=== PATIENT | male | born 1980 | race Caucasian/White ===

== ENCOUNTER 2018-11-28 20:29 | Emergency (ER) | payer OTHER ==
[2018-11-28] MEDS ORDERED: Lidocaine 1% 20 ML MDV ONE (21:02)
[2018-11-28] MEDS ORDERED: HYDROcodone/Acetaminophen 10/325 mg Tablet ONE (21:16)
[2018-11-28] MEDS ORDERED: Bacitracin Zinc Ointment 30 gm TUBE ONE (22:50)
[2018-11-29] MEDS ORDERED: Morphine 4 MG/ML VIAL ONE (00:12)
[2018-11-29] MEDS ORDERED: Ketorolac Tromethamine 30 MG/ML VIAL ONE (00:12)
--- NOTE | 2018-12-18 11:31 | OP ---
DATE OF PROCEDURE: 11/28/2018 PREOPERATIVE DIAGNOSES: 1. 2.5-cm upper lip laceration. 2. 3.5-cm left cheek laceration through the left labial commissure with violation of the vermilion. 3. 7.5-cm complicated laceration and soft tissue wound with degloving of the left mandible involving the left buccal mucosa and labial mucosa. 4. 2-cm lower lip laceration with violation of the vermilion in continuity with intra-oral laceration. POSTOPERATIVE DIAGNOSES: 1. 2.5-cm upper lip laceration. 2. 3.5-cm left cheek laceration with extension through the left labial oral commissure and with violation of the vermilion border. 3. Complicated 7.5-cm intra-oral laceration with degloving of the mandible involving the left buccal mucosa and labial mucosa. 4. 2-cm lower lip laceration with extension through the vermilion border in continuity with the intra-oral laceration. PROCEDURES PERFORMED: 1. Debridement and layered closure of the 2.5-cm upper lip laceration. 2. Debridement and complex layered closure of the 3.5-cm left cheek laceration. 3. Debridement and complex layered closure of 7.5-cm left buccal mucosa and labial mucosa laceration. 4. Debridement and complex layered closure of 2-cm lower lip laceration. INDICATIONS FOR PROCEDURE: This is a 38-year-old male with a medical history significant for avascular necrosis of the left hip. The patient was at his child's baseball practice this evening and fell along the bleacher secondary to his hip issues. The patient suffered significant soft tissue injuries involving the face and oral cavity. I was consulted by the Emergency Room for assistance with closure of these complex lacerations. DESCRIPTION OF PROCEDURE: Local anesthetic was delivered throughout the face and oral cavity in the area of the soft tissue wounds using combination of Septocaine and lidocaine to achieve local anesthesia. After local anesthetic was achieved, all the soft tissue wounds were debrided thoroughly of all foreign bodies and foreign material. After thorough debridement, the wounds were then irrigated copiously with normal saline. Attention was first turned towards repair of the intra-oral soft tissue wounds. Throughout the length of the 7.5-cm wound, any areas that could be closed with a deep layer were closed using buried interrupted 4-0 Vicryl sutures. The mucosal aspects of this wound were then reapproximated and closed with combination of interrupted and running 4-0 chromic gut sutures. Attention was then turned towards the extension of this intra-oral wound into an external lip wound in the midline of the lower lip. This wound was irrigated once more, and the deep layers were closed with interrupted buried 4-0 Vicryl sutures as well. The vermilion border was then tacked with 5-0 Prolene, and the remainder of the wound was then closed with interrupted 5-0 Prolene skin sutures as well. Attention was then turned to the left cheek laceration, and the wound was first re-irrigated copiously, and then the vermilion border was tacked using a 5-0 Prolene suture as well. After realignment of the vermilion border, the deep aspects of this wound were also closed using interrupted buried 4-0 Vicryl sutures. After the deep closure and the skin, the skin was then closed with interrupted 5-0 Prolene sutures. Lastly, attention was turned to the upper lip laceration, which was irrigated once more and then closed in layers as well using interrupted buried 4-0 Vicryl sutures and 5-0 interrupted Prolene sutures on the skin. It should be noted that prior to closure of these external wounds, some conservative trimming of the patient's joel in the areas of the lacerations was performed using clippers. After completion of closure of all the wounds, the oral cavity was irrigated and suctioned free of debris, and the facial aspects of the wounds were also cleaned with saline and guaze and then dressed with a heavy layer of bacitracin ointment. INTRAVENOUS FLUIDS: None. ESTIMATED BLOOD LOSS: 5 mL. DRAINS: None. SPECIMENS: None. COMPLICATIONS: None. IMPLANTS: None. FINDINGS: Significant soft tissue wounds involving both external face and the oral cavity secondary to fall from standing. DISPOSITION: The patient tolerated the procedure well. He was returned back over to the emergency room staff for completion of his care and disposition to home with his . Job ID: [id number]
--- NOTE | 2018-12-18 11:39 | CON ---
DATE OF CONSULTATION: 11/28/2018 CONSULTING PHYSICIAN: Bala Felipe MD in the emergency room. HISTORY OF PRESENT ILLNESS: This is a 38-year-old male with past medical history significant for avascular necrosis in left hip. The patient was at 1 of his children's basket ball practices in evening and fell while in the bleacher secondary to his hip issues and subsequently sustained a significant soft tissue injuries to the face and mouth. I was consulted by the emergency room due to the complex nature of the soft tissue wounds for assistance with repair. PAST MEDICAL HISTORY: Left hip avascular necrosis and gastroesophageal reflux disease. MEDICATIONS: 1. Nexium. 2. Tramadol. PAST SURGICAL HISTORY: Left femur resurfacing, labral debridement, cholecystectomy, right labral biceps repair. ALLERGIES: PENICILLIN, PHENOBARBITAL, AND DILANTIN. SOCIAL HISTORY: Denies smoking, alcohol, or drugs. REVIEW OF SYSTEMS: Positive for pain and discomfort in the anterior face and oral cavity. Also positive for significant pain in the left hip region. Otherwise, review of systems negative. PHYSICAL EXAMINATION: GENERAL: The patient is alert, awake, and oriented x3, in no apparent distress. HEAD AND NECK: No external signs of trauma involving the periorbital or orbital regions, nose, or ears. No signs of scalp trauma or soft tissue wounds. The patient has a proximally 2.5 cm upper lip laceration down to the muscle. The patient also has an approximately 3.5 cm left cheek laceration that extends from the left oral commissure with violation at the vermilion extends down to the left cheek region. The patient also has a 2 cm lower lip laceration proximally in the midline with violation at the vermilion and extension into the labial mucosa and oral cavity. On intraoral examination, the patient has a complicated significant 7.5 cm soft tissue wounds and laceration involving the left buccal mucosa, labial mucosa and extends up into the lower lip. This soft tissue intraorally extends up to the area of the attached tissues and tooth #22 region. There are no signs of dental trauma. Occlusal planes without steps. There is no noted mobility across any aspects of the mandible. Occlusion is well intercuspatated bilaterally. Floor of the mouth is soft and normal. Oropharynx is within normal limits. Neck exam is without significant findings. Trachea is midline. There are no noted masses or signs of soft tissue injury. ASSESSMENT: 1. A 2.5 cm upper lip laceration. 2. A 3.5 cm left cheek laceration extending to the left oral commissure with violation of the vermilion. 3. A 7.5 cm complicated left laceration including the buccal mucosa and labial mucosa with degloving of the mandible throughout. 4. A 2 cm lower lip laceration with violation of the vermilion and incontinuity with the intraoral lacerations. PLAN: 1. The soft tissue wounds will be cleaned and debrided and repaired in the emergency room under local anesthetic. 2. Wound care instructions have been reviewed with the patient and his . 3. Recommendations have been provided to the emergency room physician on a weeks worth of p.o. antibiotics and b.i.d. rinses with Peridex and dressing of the wounds with bacitracin ointment externally. Job ID: [id number]
== END 2018-11-29 00:19 | disposition home or self-care (01) ==
LOC: SCSER 20:29
DX: S01.511A Laceration without foreign body of lip, initial encounter (principal); W01.198A Fall on same level from slipping, tripping and stumbling with subsequent striking against other object, initial encounter
CPT/HCPCS: 12051; 40650; 41252; 96372; J1885; J2001; J2270

== ENCOUNTER 2020-03-18 10:51 | Outpatient (CLI) | payer OTHER | END 2020-03-18 10:52 | disposition home or self-care (01) | LOC: CTENTCT 10:51 | PROVIDERS: ATTEND Otolaryngology Plastic Surgery within the Head & Neck | DX: J32.9 Chronic sinusitis, unspecified (principal) | CPT/HCPCS: 70486 ==

== ENCOUNTER 2020-05-10 07:25 | Outpatient (CLI) | payer OTHER ==
[2020-05-11 12:19] LABS: SARS-CoV-2 MS2 Positive; SARS-CoV-2 N Gene Negative; SARS-CoV-2 S Gene Negative; SARS-CoV-2 orf1ab Negative
--- NOTE | 2020-05-12 18:07 | EKG ---
Test Reason : Blood Pressure : / mmHG Vent. Rate : 085 BPM Atrial Rate : 085 BPM P-R Int : 144 ms QRS Dur : 088 ms QT Int : 366 ms P-R-T Axes : 051 040 038 degrees QTc Int : 435 ms Normal sinus rhythm with sinus arrhythmia Normal ECG When compared with ECG of 25-APR-2011 00:38, No significant change was found Confirmed by MARLON DELACRUZ (2) on 05/12/2020 6:06:47 PM Referred By: GUSTAVO Confirmed By:MARLON DELACRUZ
== END 2020-05-10 07:26 | disposition home or self-care (01) ==
LOC: LABBT 07:25
PROVIDERS: ATTEND Otolaryngology Plastic Surgery within the Head & Neck
DX: Z01.812 Encounter for preprocedural laboratory examination (principal); Z11.59 Encounter for screening for other viral diseases; J32.0 Chronic maxillary sinusitis; J32.1 Chronic frontal sinusitis; J32.2 Chronic ethmoidal sinusitis; J32.3 Chronic sphenoidal sinusitis; J34.3 Hypertrophy of nasal turbinates; J34.2 Deviated nasal septum; J35.01 Chronic tonsillitis
CPT/HCPCS: 87635; 93005; 93010; U0003

== ENCOUNTER 2020-05-12 08:37 | Day surgery (SDC) | payer OTHER ==
[2020-05-07 12:22] VITALS: BMI 30.3
[2020-05-12] MEDS ORDERED: Fentanyl 250 MCG/5 ML VIAL ONE (08:59)
[2020-05-12] MEDS ORDERED: AFRIN NASAL MIST 15 ML BOT ONE ×2 (09:18→09:50)
[2020-05-12] MEDS ORDERED: Lidocaine 1% w/Epinephrine 1:100K 20 ML VIAL ONE (09:49)
[2020-05-12] MEDS ORDERED: Bacitracin Zinc Ointment 30 gm TUBE ONE (09:50)
[2020-05-12] MEDS ORDERED: Ondansetron PF 4 MG/2 ML Vial ONE (10:17)
[2020-05-12] MEDS ORDERED: Dexamethasone 20 MG/5 ML VIAL ONE (10:17)
[2020-05-12] MEDS ORDERED: Midazolam HCl 2 mg/2 ml Vial ONE (10:17)
[2020-05-12] MEDS ORDERED: PROPOFOL 200 MG/20 ML VIAL ONE (10:17)
[2020-05-12] MEDS ORDERED: Glycopyrrolate 0.2 MG/ML 5 ML SYRINGE ONE (10:17)
[2020-05-12] MEDS ORDERED: Lidocaine 1% PF 5 ML VIAL ONE (10:17)
[2020-05-12] MEDS ORDERED: Labetalol HCl 100 MG/20 ML VIAL ONE (10:17)
[2020-05-12] MEDS ORDERED: HYDROmorphone 0.5 MG/0.5 ML SYRINGE ONE ×2 (10:18→13:12)
[2020-05-12] MEDS ORDERED: Fentanyl 100 MCG/2 ML VIAL ONE (10:18)
[2020-05-12] MEDS ORDERED: methylPREDNISolone Acetate 40 mg/ml Vial ONE (11:04)
[2020-05-12] MEDS ORDERED: Morphine 2 MG/ML VIAL ONE ×2 (12:59→13:29)
[2020-05-12] MEDS ORDERED: Hydrocodone-Acetamin 15 ML UDCUP ONE (15:19)
--- NOTE | 2020-05-12 22:22 | OP ---
DATE OF PROCEDURE: 05/12/2020 PREOPERATIVE DIAGNOSES: 1. Chronic rhinosinusitis. 2. Nasal septal deviation. 3. Bilateral inferior turbinate hypertrophy. 4. Nasal obstruction. 5. Chronic adenotonsillitis. 6. Adenotonsillar hypertrophy. POSTOPERATIVE DIAGNOSES: 1. Chronic rhinosinusitis. 2. Nasal septal deviation. 3. Bilateral inferior turbinate hypertrophy. 4. Nasal obstruction. 5. Chronic adenotonsillitis. 6. Adenotonsillar hypertrophy. PROCEDURES PERFORMED: 1. Bilateral endoscopic sinus surgery, total ethmoidectomies with sphenoidotomies including removal of tissue. 2. Bilateral endoscopic sinus surgery, frontal sinus exploration. 3. Bilateral endoscopic sinus surgery, maxillary antrostomies with removal of tissue. 4. Nasal septoplasty. 5. Bilateral inferior turbinate submucosal resection. 6. Tonsillectomy and adenoidectomy. 7. Stereotactic image-guided cranial base navigational surgery. ESTIMATED BLOOD LOSS: 50 mL COMPLICATIONS: None. ANESTHESIA: GETA. DESCRIPTION OF PROCEDURE: Tonsillectomy and adenoidectomy: After consent was obtained, the patient was identified, brought to the operating room, and placed on the operating table in the supine position. General endotracheal anesthesia and intravenous access were obtained and we proceeded with positioning the patient for oropharyngeal surgery. Oropharyngeal exposure was obtained with a Selene-Korey mouth gag after a head drape was placed and secured with a towel clip. The Selene-Korey mouth gag was then suspended from the Santiago tray and palatal elevation was achieved with a red rubber catheter. The right tonsil was addressed first. We used a curved Allis to grasp the tonsil and retract it medially as an anterior pillar incision was made. The retrotonsillar fascial plane was then established and blunt dissection was performed with the suction cautery. Blood vessels were anticipated, identified, and cauterized as they were encountered. Ultimately, dissection was carried to the posterior tonsillar pillar mucosa which was incised hemostatically, as well as the base of tongue connection. The tonsil was then passed off as a specimen and bleeding points within the tonsillar bed were cauterized under direct visualization. We subsequently turned our attention to the contralateral side, where using a similar technique, a near identical procedure was performed. Again, the tonsil was grasped and retracted medially with a curved Allis. The retrotonsillar fascial plane was established and while the anterior pillar was retracted medially. The hemostatic blunt dissection of the tonsil with a suction cautery was performed with blood vessels anticipated, identified, and cauterized as they were encountered. Again, dissection continued to the base of tongue and posterior tonsillar pillar mucosa which was incised in a hemostatic fashion. The tonsillar beds were then carefully inspected and bleeding points were identified and cauterized with a suction cautery. After this portion of the procedure, hemostasis was completely obtained. Under direct mirror visualization, we visualized the adenoid pad. Under direct mirror visualization, we removed the bulk of the adenoid tissue with the adenoid curette. We then packed the nasopharynx for an appropriate period of time with Mzc-[id number] tonsillar sponges. After a period of observation, we removed the pack. Under indirect mirror visualization, we obtained hemostasis and vaporization of residual adenoid tissue with electrocautery. The patient's oral cavity was copiously irrigated with iced saline and subsequently suctioned. After completion of the procedure, the nasal cavity and oropharynx were irrigated and suctioned as were the gastric contents. The patient was then awakened and transferred to the recovery room where the patient remained in stable condition prior to discharge to Day Stay. Nasal septoplasty and bilateral inferior turbinate submucosal resection: The patient was taken to the operating room and placed supine on the table. General endotracheal anesthesia was obtained by the anesthesia staff. Then 1% lidocaine with 1:100,000 epinephrine was injected into the nasal septum as well as the inferior turbinates. The patient was prepped and draped in standard surgical fashion. The Afrin pledgets were then removed. A Lincoln incision was made on the left nasal septum. Submucoperichondrial dissection was performed bilaterally of the deviated portions of the septum, which included the maxillary crest and the crest deviation, as well as the mid portion of the septum. Cartilage and bony deviation was removed, leaving a generous caudal and dorsal strut. Any straight pieces of cartilage were then placed within the cartilage press, pressed, straightened, and then placed between the mucoperichondrial flaps, which were then closed using a 4-0 gut stitch. The inferior turbinates were then punctured with the submucosal Coblation machine, and 3 separate coblations were delivered to the anterior inferior portion of the inferior turbinates. Following this, the nasal cavity was irrigated. All debris was removed. An orogastric tube was placed. Gastric contents and Villareal splints were then placed in the nasal cavity and sutured with a 3-0 silk stitch. Bilateral endoscopic sinus surgery, total ethmoidectomy, and maxillary antrostomies: Following this, 1% lidocaine with 1:100,000 epinephrine were injected into the middle turbinates and lateral nasal wall bilaterally. Following this, the 0-degree endoscope was used to visualize the middle turbinate and the middle turbinate was medially fractured using a Lancaster elevator. Following this, the uncinate process was identified and was examined. The uncinate process was noted to be inflamed and laterally displaced bilaterally. Following this, a ball-ended probe was used to anteriorly fracture the uncinate process bilaterally. Following this, the 0-degree microdebrider and the up-biting Blakesley forceps were used to remove the uncinate process bilaterally. Following this, the natural maxillary sinus ostia was identified with the 0-degree endoscope and the ball-ended probe. The natural maxillary ostia was then widened using a 40-degree microdebrider and the straight Blakesley forceps bilaterally. Following this, the ethmoidal bulla was identified bilaterally. A 0-degree microdebrider was used to puncture the ethmoidal bulla on its medial and inferior aspect bilaterally. Following this, the 0-degree microdebrider and the up-biting Blakesley forceps were used to remove the ethmoidal bulla. Following this, the grand lamella was identified posterior to this area and was punctured using the 0-degree microdebrider bilaterally. Following this, the ethmoidal cells were opened from the posterior to the anterior using the 0-degree microdebrider, the 40-degree microdebrider and the up-biting Blakesley forceps bilaterally. Following this, the 45-degree endoscope and the 40-degree microdebrider blade were used to further remove the anterior ethmoidal cells to the level of the frontal sinus recess bilaterally. Following this, the 45-degree endoscope was then used along with a 40-degree microdebrider blade to further open the frontal recess air cells bilaterally and identify the frontal sinus ostia bilaterally. The frontal sinus ostia were then widened bilaterally using a 40-degree microdebrider blade and up-biting Blakesley forceps bilaterally. Following this, a 40-degree microdebrider blade was then used to further widen the maxillary antrostomies to allow frontal sinus curettes to approach the lesion found in the lateral wall of the maxillary sinus. The lesion was consistent with a necrotic bone that appeared to be very chalky once the medial or maxillary sinus side of the bone lesion was removed using the image-guided instruments. Following this, the 0 degree nasal endoscope was advanced through the previous ethmoidectomies, and anterior wall of the sphenoid sinus was identified using the image-guided system. Sphenoidotomies were created bilaterally using a Banegas-tip suction. The sphenoid sinus ostia were widened in a medial and inferior direction with the 0-degree microdebrider by removal of polypoid tissue and bone. Following this, the image-guided system was turned off. The nasal cavity was irrigated. NasoPore packing was placed within the middle meatus. Villareal splints were placed and secured. Prior to beginning of the nasal endoscopic procedure, the stereotactic landmark image-guided system was set up, calibrated, and was noted to be within 1 mm of accuracy. The patient tolerated the procedure well. Job ID: [id number]
== END 2020-05-12 15:55 | disposition home or self-care (01) ==
LOC: SDC 08:37
PROVIDERS: ATTEND Otolaryngology Plastic Surgery within the Head & Neck
PROC: 09BT8ZZ Excision of Left Frontal Sinus, Via Natural or Artificial Opening Endoscopic (ICD-10-PCS; principal; 2020-05-12)
PROC: 09BV8ZZ Excision of Left Ethmoid Sinus, Via Natural or Artificial Opening Endoscopic (ICD-10-PCS; principal; 2020-05-12)
PROC: 099Q8ZZ Drainage of Right Maxillary Sinus, Via Natural or Artificial Opening Endoscopic (ICD-10-PCS; principal; 2020-05-12)
PROC: 0CTQXZZ Resection of Adenoids, External Approach (ICD-10-PCS; principal; 2020-05-12)
PROC: 09BL8ZZ Excision of Nasal Turbinate, Via Natural or Artificial Opening Endoscopic (ICD-10-PCS; principal; 2020-05-12)
PROC: 099X8ZZ Drainage of Left Sphenoid Sinus, Via Natural or Artificial Opening Endoscopic (ICD-10-PCS; principal; 2020-05-12)
PROC: 09BU8ZZ Excision of Right Ethmoid Sinus, Via Natural or Artificial Opening Endoscopic (ICD-10-PCS; principal; 2020-05-12)
PROC: 099W8ZZ Drainage of Right Sphenoid Sinus, Via Natural or Artificial Opening Endoscopic (ICD-10-PCS; principal; 2020-05-12)
PROC: 09BM8ZZ Excision of Nasal Septum, Via Natural or Artificial Opening Endoscopic (ICD-10-PCS; principal; 2020-05-12)
PROC: 099R8ZZ Drainage of Left Maxillary Sinus, Via Natural or Artificial Opening Endoscopic (ICD-10-PCS; principal; 2020-05-12)
PROC: 09BS8ZZ Excision of Right Frontal Sinus, Via Natural or Artificial Opening Endoscopic (ICD-10-PCS; principal; 2020-05-12)
PROC: 8E09XBZ Computer Assisted Procedure of Head and Neck Region (ICD-10-PCS; principal; 2020-05-12)
PROC: 0CTPXZZ Resection of Tonsils, External Approach (ICD-10-PCS; principal; 2020-05-12)
DX: J35.03 Chronic tonsillitis and adenoiditis (principal); J32.4 Chronic pansinusitis; J34.2 Deviated nasal septum; J34.3 Hypertrophy of nasal turbinates; Z79.899 Other long term (current) drug therapy; Z88.0 Allergy status to penicillin; Z88.8 Allergy status to other drugs, medicaments and biological substances
CPT/HCPCS: 88302; 88304; C2625; J1100; J1170; J2250; J2270; J2405; J2704; J2920; J3010

== ENCOUNTER 2021-04-21 15:31 | Outpatient (CLI) | payer OTHER | END 2021-04-21 15:32 | disposition home or self-care (01) | LOC: RAD-FRANK 15:31 | PROVIDERS: ATTEND Nurse Practitioner Family | DX: R05 Cough (principal) | CPT/HCPCS: 71046 ==

== ENCOUNTER 2022-05-22 14:42 | Outpatient (CLI) | payer OTHER ==
[2022-05-22 15:14] LABS: Hemoglobin 14.6 g/dL (13.5-17.5); Mean Corpuscular Hemoglobin 27.4 pg (27.0-33.0); Mean Corpuscular Volume 83.1 fl (81.2-95.1); Mean Platelet Volume 9.8 fl (7.4-10.4); Platelet Count 335 10x3/uL (150-450); RBC Distribution Width 13.4 % (11.5-14.5); Red Blood Cell (RBC) Count 5.33 10x6/uL (4.32-5.72); White Blood Cell (WBC) Count 7.6 10x3/uL (3.5-10.5)
[2022-05-22 15:41] LABS: INR-International Normal Ratio 0.9; PTT 24.8 sec (22.0-33.0); Prothrombin Time 9.8 sec (9.5-12.1)
[2022-05-22 15:45] LABS: Anion Gap 13 mmol/L (10-20); BUN (Urea Nitrogen) 6 mg/dL (8.9-20.6); Calc. Creatinine Clearance 0 mL/min (70-130); Calcium 9.4 mg/dL (7.8-10.44); Carbon Dioxide 28 mmol/L (22-29); Chloride 103 mmol/L (98-107); Estimated GFR 107; Glucose 156 mg/dL (70-105); Potassium 3.9 mmol/L (3.5-5.1); Sodium 140 mmol/L (136-145)
== END 2022-05-22 14:43 | disposition home or self-care (01) ==
LOC: LABBT 14:42
PROVIDERS: ATTEND Surgery
DX: Z01.818 Encounter for other preprocedural examination (principal); M51.16 Intervertebral disc disorders with radiculopathy, lumbar region; Z20.822 Contact with and (suspected) exposure to COVID-19
CPT/HCPCS: 80048; 85027; 85610; 85730; 87811; 93005; 93010

== ENCOUNTER 2022-05-25 05:56 | Observation (INO) | payer OTHER ==
[2022-05-24 13:53] VITALS: BMI 31.6
[2022-05-25] MEDS ORDERED: Thrombin 5000 UNITS/5 ML VIAL ONE (06:24)
[2022-05-25] MEDS ORDERED: Clindamycin/D5W 900 mg/50 ml Premix Bag ONE ×2 (06:33→14:41)
[2022-05-25] MEDS ORDERED: Levofloxacin 500 mg/D5W 100 ml Premix Bag ONE (06:33)
[2022-05-25] MEDS ORDERED: Scopolamine 1.5 mg/72 hour Patch ONE (06:50)
[2022-05-25] MEDS ORDERED: fentaNYL Citrate/PF 100 MCG/2 ML SYRINGE ONE (06:59)
[2022-05-25] MEDS ORDERED: Dexmedetomidine 200 MCG/2 ML VIAL ONE (06:59)
[2022-05-25] MEDS ORDERED: HYDROmorphone 2 MG/ML VIAL ONE ×2 (07:17→09:35)
[2022-05-25] MEDS ORDERED: Labetalol HCl 100 MG/20 ML VIAL ONE (07:28)
[2022-05-25] MEDS ORDERED: Glycopyrrolate 0.2 MG/ML 5 ML SYRINGE ONE (07:28)
[2022-05-25] MEDS ORDERED: Ketorolac Tromethamine 30 MG/ML VIAL ONE (07:28)
[2022-05-25] MEDS ORDERED: PROPOFOL 200 MG/20 ML VIAL ONE (07:28)
[2022-05-25] MEDS ORDERED: Phenylephrine 10 MG/ML VIAL ONE (07:28)
[2022-05-25] MEDS ORDERED: Lidocaine 1% PF 5 ML VIAL ONE (07:28)
[2022-05-25] MEDS ORDERED: Dexamethasone 20 MG/5 ML VIAL ONE (07:28)
[2022-05-25] MEDS ORDERED: ePHEDrine 50 MG/ML VIAL ONE (07:28)
[2022-05-25] MEDS ORDERED: Ondansetron PF 4 MG/2 ML Vial ONE (07:28)
[2022-05-25] MEDS ORDERED: Rocuronium Bromide 10 MG/ML (10ML VIAL) ONE (07:28)
[2022-05-25] MEDS ORDERED: Acetaminophen 325 MG TAB PO PRN (07:53)
[2022-05-25] MEDS ORDERED: Morphine 2 MG/ML VIAL SLOW IVP PRN (07:53)
[2022-05-25] MEDS ORDERED: Acetaminophen/Codeine 30-300mg Tablet PO PRN (07:53)
[2022-05-25] MEDS ORDERED: Fluticasone Propionate Nasal Spray 16 gm Bottle NASAL PRN ×2 (07:57→08:03)
[2022-05-25] MEDS ORDERED: Non-Formulary Item 1 EACH (Esomeprazole Magnesium [Nexium] 20 MG Capsule.Dr) PO SCH (09:00)
[2022-05-25] MEDS ORDERED: Non-Formulary Item 1 EACH (Magnesium Oxide [Magnesium] 400 MG Tablet) PO SCH (09:00)
[2022-05-25] MEDS ORDERED: tiZANidine HCl 4 MG TAB ONE (10:16)
[2022-05-25] MEDS ORDERED: Hydrocortisone 1% Cream 30 GM TUBE ONE (10:56)
[2022-05-25] MEDS ORDERED: HYDROcodone/Acetaminophen 5/325 mg Tablet ONE ×2 (10:56→12:07)
[2022-05-25] MEDS: Clindamycin/D5W 900 MG in Premix Bag 1 BAG IVPB SCH ×2 (14:42→22:41)
[2022-05-25] MEDS: Magnesium Oxide 400 MG TAB PO SCH (15:38)
[2022-05-25] MEDS: Sodium Chloride 0.9% 1,000 ML IV SCH ×2 (15:44→22:20)
[2022-05-25] MEDS: HYDROcodone/Acetaminophen 7.5/325 mg Tablet PO PRN ×2 (17:48→22:42)
[2022-05-25] MEDS: traMADol HCl 50 MG TAB PO PRN (19:58)
[2022-05-25] MEDS: tiZANidine HCl 4 MG TAB PO PRN (20:04)
[2022-05-25] MEDS ORDERED: Losartan 25 MG TAB PO SCH (21:00)
[2022-05-26] MEDS: HYDROcodone/Acetaminophen 7.5/325 mg Tablet PO PRN (04:30)
[2022-05-26] MEDS: Magnesium Oxide 400 MG TAB PO SCH (08:02)
[2022-05-26] MEDS: traMADol HCl 50 MG TAB PO PRN (08:02)
[2022-05-26] MEDS: tiZANidine HCl 4 MG TAB PO PRN (08:12)
[2022-05-26 08:58] VITALS: BP 128/85; TEMP 97.9
== END 2022-05-26 09:38 | disposition home or self-care (01) ==
LOC: SDC 05:56 → SURG B 07:58
PROVIDERS: ADMIT Surgery; ATTEND Surgery
PROC: 0SB20ZZ Excision of Lumbar Vertebral Disc, Open Approach (ICD-10-PCS; principal; 2022-05-25)
PROC: 01NB0ZZ Release Lumbar Nerve, Open Approach (ICD-10-PCS; 2022-05-25)
DX: M51.16 Intervertebral disc disorders with radiculopathy, lumbar region (principal); M48.061 Spinal stenosis, lumbar region without neurogenic claudication; K21.9 Gastro-esophageal reflux disease without esophagitis; Z79.899 Other long term (current) drug therapy; Z88.0 Allergy status to penicillin; Z88.8 Allergy status to other drugs, medicaments and biological substances
CPT/HCPCS: 76000; 96374; 96375; G0378; J1100; J1170; J1885; J1956; J2370; J2405; J2704; J2710; J3370; J3490; J7050